=== PATIENT | male | born 1995 | race Two or more races ===

== ENCOUNTER 2021-06-03 09:11 | Outpatient (REF) | payer MEDICAID, OTHER, SELFPAY | END 2021-06-03 09:12 | disposition home or self-care (01) | LOC: HO.LAB 09:11 | PROVIDERS: Visit Provider Internal Medicine | DX: Z20.822 Contact with and (suspected) exposure to COVID-19 (principal) | CPT/HCPCS: C9803; U0003; U0005 ==